=== PATIENT | female | born 1985 | race Caucasian/White ===

== ENCOUNTER 2024-11-02 09:34 | Emergency (ER) | payer MEDICAID, OTHER, SELFPAY ==
[~2024-11-02] VITALS: Ht 157.5 cm; Wt 67.2 kg
[2024-11-02 09:40] VITALS: BP 117/76; PULSE 73; RESP 18; O2SAT 98
--- NOTE | 2024-11-02 09:51 | Physician Documentation ---
HPI ~ General Chief Complaint: Tooth Problem Stated Complaint: TEETH PAIN Time Seen by MD: 10:21 Primary Medical Doctor: None History of Present Illness HPI Comment 38-year-old female presents with a complaint of right upper molar tooth pain and facial swelling. Has a fractured tooth in his developed increased pain swelling denies any fevers or nausea vomiting Medication Reconciliation Allergies: Coded Allergies: Penicillins (Verified Allergy, Unknown, 11/02/24) Scheduled Clindamycin HCl (Cleocin HCl), 1 CAP PO Q8H Past Medical History Past Medical History: No Pertinent History Past Surgical History: no surgical history Alcohol Use: Rarely Drug Use: marijuana Review of Systems All Other Systems at this time: Reviewed and Negative ROS As stated above in the HPI, otherwise all systems are reviewed and negative. Physical Exam Vital Signs: Temperature: 98.0, Source: Temporal, Heart Rate: 73, Respiratory Rate: 18, BP: 117/76, Pulse Oximetry: 98, Weight: 67.150 Physical Exam General: Alert, no apparent distress. HEENT: PERRL, EOMI, no injection, moist mucous membranes. Tooth caries particularly a fractured molar in the upper right region with surrounding tissue inflammation Neck: Full range of motion. Neurologic: Oriented x4. Psychiatric: Normal mood and affect. Skin: Normal color, warm and dry. No edema, no ecchymosis. Progress Results/Orders Results/Orders Vital Signs 11/02/24 09:40 Temp 98.0 Pulse 73 Resp 18 B/P (MAP) 117/76 Pulse Ox 98 Medical Decision Making Findings Patient empirically for a suspected tooth abscess. Presents as a good candidate for outpatient therapy. I did advise her to follow up with a dentist for further evaluation Differential Dx:Considerations: Include: Alveolar fracture, Alveolar osteitis, ANUG, Facial Cellulitis, Periapical abscess, Peridontal abscess, Post-extraction bleeding, Pulpitis, Tooth avulsion, Tooth eruption, Tooth Fracture, Trigeminal neuralgia, Tooth subluxation, Other Departure Disposition: 01 HOME / SELF CARE / HOMELESS Impression: Primary Impression: Dental caries Additional Impression: Dental abscess Condition: Stable Discharge Instructions: Dental Caries, Adult, Dental Abscess Referrals: NO PRIMARY CARE PROVIDER (PCP) Prescriptions Clindamycin HCl (Cleocin HCl) 300 Mg Capsule 1 CAP PO Q8H for 10 Days, #30 CAP Prov: RAJ DECKER [employer] DRUMMER 6/9/25 Education Educated: Patient Educated regarding: diagnosis Signature Scribe Signature: f Attestation: The note accurately reflects work and decisions made by me.Raj Penny NP 11/02/24 10:32 RAJ DECKER NP Nov 02, 2024 09:51
[2024-11-02] MEDS ORDERED: CLIN300C3 PO (10:29)
[2024-11-02 13:04] VITALS: TEMP 98
== END 2024-11-02 13:07 | disposition home or self-care (01) ==
LOC: ER 09:35
DX: K04.7 Periapical abscess without sinus (principal); K02.9 Dental caries, unspecified; F12.90 Cannabis use, unspecified, uncomplicated; Z88.0 Allergy status to penicillin
CPT/HCPCS: 99283